=== PATIENT | male | born 1965 | race Caucasian/White ===

== ENCOUNTER 2020-06-23 00:28 | Day surgery (SDC) | payer MEDICARE, MEDICAID, SELFPAY ==
[2020-02-03 15:02] VITALS: BMI 22.6
[2020-06-23 11:10] VITALS: BP 124/76; PULSE 100; RESP 18; TEMP 36.1; O2SAT 96
--- NOTE | 2020-06-23 11:18 | WPDANESEPPF ---
Anes - Initial Pre Proc Eval Procedure: Operation Date: 06/23/20 12:15 Proposed Procedures p Esophagogastroduodenoscopy & Colonoscopy - Raza Howard MD Date/Time: 06/23/20 11:18 Surgeon: Raza Howard MD Pre Op Diagnosis: Constipation, GERD Patient Data Age: 55 Gender: M Height: 6 ft 4 in Weight: 105.2 kg Last Vital Signs Temp 97.0 F L 06/23/20 11:10 Pulse 100 06/23/20 11:10 Resp 18 06/23/20 11:10 BP 124/76 06/23/20 11:10 Pulse Ox 96 06/23/20 11:10 Allergies Allergy/AdvReac Type Severity Reaction Status Date / Time No Known Allergies Allergy Verified 06/23/20 11:09 Home Medications Medication Instructions Recorded Confirmed Type albuterol sulfate [Ventolin HFA] 1 inh INHALATION PRN PRN 02/03/20 06/16/20 History bupropion HCl 150 mg PO DAILY 02/03/20 06/16/20 History clozapine 100 mg PO BID 02/03/20 06/16/20 History divalproex 1,000 mg PO QAM AND QPM 02/03/20 06/16/20 History empagliflozin [Jardiance] 25 mg PO DAILY 02/03/20 06/16/20 History fluphenazine HCl 3 mg PO HS 02/03/20 06/16/20 History fluticasone furoate-vilanterol 1 inh INHALATION DAILY 02/03/20 06/16/20 History [Breo Ellipta] linaclotide [Linzess] 145 mcg PO DAILY 02/03/20 06/16/20 History magnesium oxide 250 mg PO DAILY 02/03/20 06/16/20 History metformin 1,000 mg PO BID 02/03/20 06/16/20 History montelukast 10 mg PO DAILY 02/03/20 06/16/20 History omeprazole 20 mg PO BID 02/03/20 06/16/20 History sitagliptin [Januvia] 100 mg PO DAILY 02/03/20 06/16/20 History cetirizine 10 mg PO DAILY 06/16/20 06/16/20 History cholecalciferol (vitamin D3) 25 mcg PO DAILY 06/16/20 06/16/20 History [Vitamin D3] divalproex 500 mg PO QNOON 06/16/20 06/16/20 History Patient hx anesthesia problems: none Family hx anesthesia problems: none PMFSH Past Medical History Medical History (Updated 01/19/20 @ 13:29 by Raza Howard MD) Arthritis Leo esophagus Colon cancer screening Constipation Diabetes Diabetes mellitus type 2 in nonobese GERD (gastroesophageal reflux disease) Hepatitis C Seizure Family History Family History (Updated 01/19/20 @ 13:20 by Shobha Mccarthy) Mother Cerebrovascular accident Grandparent Parkinson disease Diabetes mellitus Social History Social History Smoking packs per day: 1 Smoking cigarettes per day: 20.0 Years smoked: 35 Smoking pack-years: 35.00 Smoking status: Current every day smoker Tobacco type: cigarettes Alcohol intake: never Substance use: former Substance use type: marijuana Living arrangements: care home Spiritual care concerns: No Anes - Eval Final PreProcedure Day of Procedure 06/23/20 11:18 Patient weight: overweight Heart: regular rate and rhythm Lungs: clear to auscultation Airway: Mallampati scale class II Neurological: alert and oriented Last oral intake: >/= 8 hours ASA classification: III Emergent: no Anesthetic plan: proceed Anesthesia type and monitoring: general GIVS and standard monitoring Informed Consent: The patient's anesthetic plan and its attendant risks and benefits were discussed with the patient/family/POA. Questions were solicited and answers provided to the satisfaction of the patient/family/POA.
[2020-06-23] MEDS: LACTATED RINGERS 1,000 ML 150 ML IV CONT (11:25)
--- NOTE | 2020-06-23 11:29 | WPDANESEPPF ---
Anes - Initial Pre Proc Eval Procedure: Operation Date: 06/23/20 12:15 Proposed Procedures p Esophagogastroduodenoscopy & Colonoscopy - Raza Howard MD Date/Time: 06/23/20 11:29 Surgeon: Raza Howard MD Pre Op Diagnosis: Constipation, GERD Patient Data Age: 55 Gender: M Height: 6 ft 4 in Weight: 105.2 kg Last Vital Signs Temp 97.0 F L 06/23/20 11:10 Pulse 100 06/23/20 11:10 Resp 18 06/23/20 11:10 BP 124/76 06/23/20 11:10 Pulse Ox 96 06/23/20 11:10 Allergies Allergy/AdvReac Type Severity Reaction Status Date / Time No Known Allergies Allergy Verified 06/23/20 11:09 Home Medications Medication Instructions Recorded Confirmed Type albuterol sulfate [Ventolin HFA] 1 inh INHALATION PRN PRN 02/03/20 06/16/20 History bupropion HCl 150 mg PO DAILY 02/03/20 06/16/20 History clozapine 100 mg PO BID 02/03/20 06/16/20 History divalproex 1,000 mg PO QAM AND QPM 02/03/20 06/16/20 History empagliflozin [Jardiance] 25 mg PO DAILY 02/03/20 06/16/20 History fluphenazine HCl 3 mg PO HS 02/03/20 06/16/20 History fluticasone furoate-vilanterol 1 inh INHALATION DAILY 02/03/20 06/16/20 History [Breo Ellipta] linaclotide [Linzess] 145 mcg PO DAILY 02/03/20 06/16/20 History magnesium oxide 250 mg PO DAILY 02/03/20 06/16/20 History metformin 1,000 mg PO BID 02/03/20 06/16/20 History montelukast 10 mg PO DAILY 02/03/20 06/16/20 History omeprazole 20 mg PO BID 02/03/20 06/16/20 History sitagliptin [Januvia] 100 mg PO DAILY 02/03/20 06/16/20 History cetirizine 10 mg PO DAILY 06/16/20 06/16/20 History cholecalciferol (vitamin D3) 25 mcg PO DAILY 06/16/20 06/16/20 History [Vitamin D3] divalproex 500 mg PO QNOON 06/16/20 06/16/20 History Patient hx anesthesia problems: none Family hx anesthesia problems: none PMFSH Past Medical History Medical History (Updated 01/19/20 @ 13:29 by Raza Howard MD) Arthritis Leo esophagus Colon cancer screening Constipation Diabetes Diabetes mellitus type 2 in nonobese GERD (gastroesophageal reflux disease) Hepatitis C Seizure Family History Family History (Updated 01/19/20 @ 13:20 by Shobha Mccarthy) Mother Cerebrovascular accident Grandparent Parkinson disease Diabetes mellitus Social History Social History Smoking packs per day: 1 Smoking cigarettes per day: 20.0 Years smoked: 35 Smoking pack-years: 35.00 Smoking status: Current every day smoker Tobacco type: cigarettes Alcohol intake: never Substance use: former Substance use type: marijuana Living arrangements: shelter Spiritual care concerns: No Anes - Eval Final PreProcedure Day of Procedure 06/23/20 11:29 Patient weight: overweight Heart: regular rate and rhythm Lungs: clear to auscultation Airway: Mallampati scale class II Neurological: alert and oriented Last oral intake: >/= 8 hours ASA classification: III Emergent: no Anesthetic plan: proceed Anesthesia type and monitoring: general GIVS and standard monitoring Informed Consent: The patient's anesthetic plan and its attendant risks and benefits were discussed with the patient/family/POA. Questions were solicited and answers provided to the satisfaction of the patient/family/POA.
[2020-06-23 11:30] LABS: Glucose Point of Care 243 (65-105)
--- NOTE | 2020-06-23 11:45 | PM.HPGS ---
History of Present Illness History of Present Illness Consent: Risks, benefits, and alternatives have been discussed and questions answered. Patient agrees to proceed with procedure. Chief complaint: Constipation, GERD Narrative: Huseyin Barker is a 55 year old male with jain's esophagus on ppi, also needs screening colonoscopy Review of Systems Constitutional: Constitutional: Denies headache(s) and Denies weakness Eyes: Eyes: Denies blurry vision ENT: Reports Normal hearing present, Denies headache(s) and Denies neck pain Cardiovascular: Cardiovascular: Denies chest pain and Denies dyspnea Respiratory: Respiratory: Denies dyspnea Gastrointestinal: Gastrointestinal: Reports no additional gastrointestinal complaints Genitourinary: Genitourinary: Denies dysuria Musculoskeletal: Musculoskeletal: Denies neck pain Integumentary/Breasts: Skin/Breast: Denies dry skin Neurologic: Reports Normal hearing present, Denies headache(s) and Denies weakness Psychiatric: Psychiatric: Denies anxiety Endocrine: Endocrine: Denies change in body appearance Hematologic/Lymphatic: Hematologic/Lymphatic: Denies easy bleeding Allergic/Immunologic: Allergic/Immunologic: Denies urticaria PMFSH Past Medical History Medical History (Updated 01/19/20 @ 13:29 by Raza Howard MD) Arthritis Jain esophagus Colon cancer screening Constipation Diabetes Diabetes mellitus type 2 in nonobese GERD (gastroesophageal reflux disease) Hepatitis C Seizure Family History Family History (Updated 01/19/20 @ 13:20 by Shobha Mccarthy) Mother Cerebrovascular accident Grandparent Parkinson disease Diabetes mellitus Social History Social History Smoking packs per day: 1 Smoking cigarettes per day: 20.0 Years smoked: 35 Smoking pack-years: 35.00 Smoking status: Current every day smoker Tobacco type: cigarettes Alcohol intake: never Substance use: former Substance use type: marijuana Living arrangements: [facility] Spiritual care concerns: No Meds Home Medications and Allergies Home Medications Medication Instructions Recorded Confirmed Type albuterol sulfate [Ventolin HFA] 1 inh INHALATION PRN PRN 02/03/20 06/16/20 History bupropion HCl 150 mg PO DAILY 02/03/20 06/16/20 History clozapine 100 mg PO BID 02/03/20 06/16/20 History divalproex 1,000 mg PO QAM AND QPM 02/03/20 06/16/20 History empagliflozin [Jardiance] 25 mg PO DAILY 02/03/20 06/16/20 History fluphenazine HCl 3 mg PO HS 02/03/20 06/16/20 History fluticasone furoate-vilanterol 1 inh INHALATION DAILY 02/03/20 06/16/20 History [Breo Ellipta] linaclotide [Linzess] 145 mcg PO DAILY 02/03/20 06/16/20 History magnesium oxide 250 mg PO DAILY 02/03/20 06/16/20 History metformin 1,000 mg PO BID 02/03/20 06/16/20 History montelukast 10 mg PO DAILY 02/03/20 06/16/20 History omeprazole 20 mg PO BID 02/03/20 06/16/20 History sitagliptin [Januvia] 100 mg PO DAILY 02/03/20 06/16/20 History cetirizine 10 mg PO DAILY 06/16/20 06/16/20 History cholecalciferol (vitamin D3) 25 mcg PO DAILY 06/16/20 06/16/20 History [Vitamin D3] divalproex 500 mg PO QNOON 06/16/20 06/16/20 History Allergies Allergy/AdvReac Type Severity Reaction Status Date / Time No Known Allergies Allergy Verified 06/23/20 11:09 Vital Signs Vital Signs - 24 hr 06/23/20 11:10 Temperature 97.0 F L Pulse Rate 100 Respiratory Rate 18 Blood Pressure 124/76 Pulse Oximetry 96 Exam Const: General: comfortable and no acute distress HENMT: General nose exam: Normal nares present Eyes: General: appearance normal, both eyes and all related structures Neck: Neck: no JVD Resp: Auscultation: clear to auscultation bilaterally Cardio: Rate: regular rate Rhythm: regular rhythm GI: Inspection: non-distended GI Palp: Yes Soft to palpation Skin: General skin exam: normal color Neuro: General: gait normal Speech: normal speech Extrem: Gene
[2020-06-23] MEDS: BENZOCAINE (*SP) 60 ML SPRAY CAN (HURRICAINE) 1 SPRAY MUCOUS MEM (11:48)
[2020-06-23 12:26] VITALS: BP 102/67; PULSE 75; RESP 19; O2SAT 96
[2020-06-23 12:36] VITALS: BP 102/66; PULSE 67; RESP 20; O2SAT 99
[2020-06-23 12:46] VITALS: BP 104/71; PULSE 74; RESP 20; O2SAT 98
== END 2020-06-23 13:10 | disposition home or self-care (01) ==
PROVIDERS: PCP Family Medicine; Visit Provider Internal Medicine Gastroenterology
PROC: 0DJ08ZZ Inspection of Upper Intestinal Tract, Via Natural or Artificial Opening Endoscopic (ICD-10-PCS; CPT 43235; principal; 2020-06-23 12:15)
DX: Z12.11 Encounter for screening for malignant neoplasm of colon (principal); D12.0 Benign neoplasm of cecum; K63.5 Polyp of colon; K64.4 Residual hemorrhoidal skin tags; K29.50 Unspecified chronic gastritis without bleeding; K22.70 Barrett's esophagus without dysplasia; K44.9 Diaphragmatic hernia without obstruction or gangrene; E11.9 Type 2 diabetes mellitus without complications; G40.909 Epilepsy, unspecified, not intractable, without status epilepticus; K59.00 Constipation, unspecified; K21.9 Gastro-esophageal reflux disease without esophagitis; Z86.19 Personal history of other infectious and parasitic diseases; Z79.84 Long term (current) use of oral hypoglycemic drugs; F17.210 Nicotine dependence, cigarettes, uncomplicated
CPT/HCPCS: 45380; 45385; 43239; 88305; J2704; J7120